=== PATIENT | female | born 1985 | race Caucasian/White ===

== ENCOUNTER 2016-11-09 10:46 | Emergency (ER) | payer MEDICAID ==
[~2016-11-09] VITALS: Wt 59.0 kg
[~2016-11-09 10:46] MED LIST: HYDR-906 PO; IBUP-1542 PO
--- NOTE | 2016-11-09 12:46 | RADRPT ---
PROCEDURE: Left ankle series CLINICAL INDICATION: TRAUMA. Pain TECHNIQUE: 3 views. COMPARISON: None FINDINGS: No fractures are noted. No lesions are visualized. No significant degenerative changes are noted. The ankle mortise is intact. The soft tissues are unremarkable. IMPRESSION: 1. No bony abnormalities are identified. RPTAT: HH .Ki Franco MD, MD Date Time Electronically viewed and signed by .Ki Franco MD, on 11/09/2016 12:46 .G/
--- NOTE | 2016-11-09 12:47 | RADRPT ---
PROCEDURE: Right foot series CLINICAL INDICATION: Trauma and pain. TECHNIQUE: 3 views. COMPARISON: None FINDINGS: No fractures are noted. Joint spaces are well maintained. No erosions are noted. The soft tissues are unremarkable. IMPRESSION: 1. No bony abnormalities are identified. RPTAT: HH .Ki Franco MD, Date Time Electronically viewed and signed by .Ki Franco MD, on 11/09/2016 12:47 .G/
[2016-11-09] MEDS ORDERED: IBUP-1542 PO (12:54)
--- NOTE | 2016-11-09 13:00 | ERD ---
ER Documentation Chief Complaint Date/Time DATE: 11/09/16 TIME: 12:58 Chief Complaint RIGHT FOOT AND ANKLE PAIN FROM NEAR FALL ABOUT 1 WK AGO HPI Start to feel complains of right foot pain after twisting a week ago. The pain is described on the dorsum of the foot. She denies any restricted range of motion or weakness. ROS All systems reviewed and are negative except as per history of present illness. Medications Home Meds Active Scripts Ibuprofen* (Motrin*) 600 Mg Tab, 600 MG PO Q6, #20 TAB Prov:LUIS WISDOM MD 11/09/16 Hydrocodone/Acetaminophen ([place] 5-325 Tablet) 1 Each Tablet, 1 EACH PO QHS for 5 Days, #5 TAB 0 Refills Prov:GILDA SAENZ PA-C 08/24/16 Ibuprofen* (Motrin*) 600 Mg Tab, 600 MG PO Q8 for 10 Days, #30 TAB 0 Refills Prov:GILDA SAENZ PA-C 08/24/16 Ibuprofen* (Motrin*) 600 Mg Tab, 600 MG PO Q6, #30 TAB Prov:TAMMY GAUTAM PA-C 01/15/16 Allergies Allergies: Coded Allergies: Penicillins (Verified Allergy, Unknown, 01/15/16) PMhx/Soc Medical and Surgical Hx: pt denies Medical Hx, pt denies Surgical Hx Hx Alcohol Use: No Hx Substance Use: No Hx Tobacco Use: No Smoking Status: Never smoker Physical Exam Vitals Vital Signs Date Time Temp Pulse Resp B/P Pulse Ox O2 Delivery O2 Flow Rate FiO2 11/09/16 10:50 98.6 55 20 120/58 99 Physical Exam Const: [] Alert, not ill-appearing. Head: Atraumatic Eyes: Normal Conjunctiva ENT: Normal External Ears, Nose and Mouth. Neck: Full range of motion..~ No meningismus. Resp: Clear to auscultation bilaterally Cardio: Regular rate and rhythm, no murmurs Abd: Soft, non tender, non distended. Normal bowel sounds Skin: No petechiae or rashes Back: No midline or flank tenderness Ext: No cyanosis, or edema. Mild tenderness primary doctor second third tarsometatarsal joint and lateral ankle and foot. There is mild swelling. Is no ecchymosis, warmth, erythema, restricted range of motion or weakness. Neur: Awake and alert Psych: Normal Mood and Affect Procedures/MDM X-ray right Foot 3V Interpreted by me: Bones: [No fracture] Joints: [No dislocation] Foreign body: [None]. Impression-normal right foot x-ray X-ray right Ankle 3V Interpreted by me: Bones: [No fracture] Joints: No dislocation. Impression-normal right ankle x-ray Patient presents with signs and symptoms of an acute right foot sprain without evidence of fracture, dislocation, neurologic deficit, bacterial infection. Eliseo bandage and postop shoe was applied. Patient is neurovascular intact after shoe. Patient be discharged home with a prescription of ibuprofen, instructions for ice elevation and instructions to follow-up with primary doctor for further elevation for pain next week. She should return sooner for fevers, redness or new symptoms. Departure Diagnosis: Primary Impression: Sprain of foot, right Encounter type: initial encounter Qualified Code: S93.601A - Sprain of foot , right, initial encounter Condition: Stable Patient Instructions: Sprain Foot [facility] Usted se red hecho un examen mdico de control que le indica que no est en rodrick condicin que requiera tratamiento urgente en el Departamento de Emergencia. Un estudio ms profundo y el tratamiento de garcia condicin pueden esperar sin ningn riesgo hasta que usted sea atendida/o en el consultorio de garcia mdico o rodrick cl arnie. Es responsabilidad suya arreglar rodrick diogenes para el seguimiento del justo. MANEJO DE CONDICIONES NO URGENTES EN EL FUTURO 1) Si usted tiene un mdico de atencin primaria: Usted debera llamar a garcia mdico de atencin primaria antes de venir al departamento de emergencia. Despus de las horas de consultorio, garcia doctor o garcia asociado/a est disponible por telfono. El mdico o enfermero de renny en el servicio telefnico puede asesorarle por caryn medio para atender el problema, o justo contrario se puede programar rodrick diogenes. 2) Si usted no tiene un mdico de atencin primaria: Llame al mdico o clnica de referencia que aparece abajo michelle las horas de consultorio para hacer rodrick diogenes para que le vean. CLINICAS: [facility] [phone] [facility] [phone] [facility] [phone] [place] [phone] [place] [address] [phone] [facility]. [phone] [address] Additional Instructions: X KVNG NORMAL. . Cheque otro vez con garcia doctor primario en el proximo valera or regresa para mas o nueva simptomas. LUIS WISDOM MD Nov 09, 2016 13:00
== END 2016-11-09 15:16 | disposition home or self-care (01) ==
LOC: FTE 10:46
DX: S93.601A Unspecified sprain of right foot, initial encounter (principal); W18.39XA Other fall on same level, initial encounter; Y92.9 Unspecified place or not applicable
CPT/HCPCS: 73610; 73630; Z7502

== ENCOUNTER 2017-09-03 20:32 | Emergency (ER) | payer MEDICAID ==
[~2017-09-03] VITALS: Wt 67.3 kg
[2017-09-03] MEDS ORDERED: KETOROLAC 15 MG INJ IV STA (23:02)
--- NOTE | 2017-09-03 23:02 | ERD ---
ER Documentation Chief Complaint Chief Complaint abdominal pain x 2 weeks HPI This 32-year-old Burundian speaking female presents to ED with 1 week HX of intermitted RUQ ABD pain. left flank pain symptoms worse after eating, denies dysuria, hx of cholecystis or any surgery. LMP 08/16/17 described as normal , last BM was this AM, denies diarrhea, pain is described as "hard" .pt has tried IBU for symptoms relief w/ little relief of symptoms . ROS All systems reviewed and are negative except as per history of present illness. Medications Home Meds Active Scripts Ibuprofen* (Motrin*) 600 Mg Tab, 600 MG PO Q6, #20 TAB Prov:LUIS WISDOM MD 11/09/16 Hydrocodone/Acetaminophen ([place] 5-325 Tablet) 1 Each Tablet, 1 EACH PO QHS for 5 Days, #5 TAB 0 Refills Prov:GILDA SAENZ PA-C 08/24/16 Ibuprofen* (Motrin*) 600 Mg Tab, 600 MG PO Q8 for 10 Days, #30 TAB 0 Refills Prov:GILDA SAENZ PA-C 08/24/16 Ibuprofen* (Motrin*) 600 Mg Tab, 600 MG PO Q6, #30 TAB Prov:TAMMY GAUTAM PA-C 01/15/16 Allergies Allergies: Coded Allergies: Penicillins (Verified Allergy, Unknown, 09/03/17) PMhx/Soc Medical and Surgical Hx: pt denies Medical Hx, pt denies Surgical Hx Hx Alcohol Use: No Hx Substance Use: No Hx Tobacco Use: No Smoking Status: Never smoker Physical Exam Vitals Vital Signs Date Time Temp Pulse Resp B/P Pulse Ox O2 Delivery O2 Flow Rate FiO2 09/03/17 20:36 99.6 87 20 123/73 98 Physical Exam Const: [] Head: Atraumatic Eyes: Normal Conjunctiva ENT: Normal External Ears, Nose and Mouth. Neck: Full range of motion..~ No meningismus. Resp: Clear to auscultation bilaterally Cardio: Regular rate and rhythm, no murmurs Abd: Soft, non tender, non distended. Normal bowel sounds Skin: No petechiae or rashes Back: No midline or flank tenderness Ext: No cyanosis, or edema Neur: Awake and alert Psych: Normal Mood and Affect Result Diagram: 09/03/17 23309/03/17 2330 Results 24 hrs Laboratory Tests Test 09/03/17 23:30 White Blood Count 7.710^3/ul Red Blood Count 4.0810^6/ul Hemoglobin 12.2g/dl Hematocrit 35.9% Mean Corpuscular Volume 88.0fl Mean Corpuscular Hemoglobin 29.9pg Mean Corpuscular Hemoglobin Concent 34.0g/dl Red Cell Distribution Width 12.1% Platelet Count 16911^3/UL Mean Platelet Volume 10.0fl Neutrophils % 60.7% Lymphocytes % 29.1% Monocytes % 8.4% Eosinophils % 1.3% Basophils % 0.1% Nucleated Red Blood Cells % 0.0/100WBC Neutrophils # 4.710^3/ul Lymphocytes # 2.310^3/ul Monocytes # 0.710^3/ul Eosinophils # 0.110^3/ul Basophils # 0.010^3/ul Nucleated Red Blood Cells # 0.010^3/ul Urine Color YELLOW Urine Clarity CLEAR Urine pH 5.0 Urine Specific [place] 1.020 Urine Ketones NEGATIVEmg/dL Urine Nitrite NEGATIVEmg/dL Urine Bilirubin NEGATIVEmg/dL Urine Urobilinogen NEGATIVEmg/dL Urine Leukocyte Esterase NEGATIVELeu/ul Urine Microscopic RBC 5/HPF Urine Microscopic WBC 1/HPF Urine Bacteria FEW/HPF Urine Hemoglobin 1+mg/dL Urine Glucose NEGATIVEmg/dL Urine Total Protein NEGATIVEmg/dl Sodium Level 142mmol/L Potassium Level 4.3mmol/L Chloride Level 107mmol/L Carbon Dioxide Level 26mmol/L Anion Gap 13 Blood Urea Nitrogen 10mg/dl Creatinine 0.73mg/dl Glucose Level 83mg/dl Calcium Level 9.1mg/dl Total Bilirubin 0.1mg/dl Direct Bilirubin 0.00mg/dl Indirect Bilirubin 0.1mg/dl Aspartate Amino Transf (AST/SGOT) 28IU/L Alanine Aminotransferase (ALT/SGPT) 56IU/L Alkaline Phosphatase 119IU/L Total Protein 7.3g/dl Albumin 3.9g/dl Globulin 3.40g/dl Albumin/Globulin Ratio 1.14 Lipase 85U/L Current Medications Medications (Trade) Dose Ordered Sig/Ling Route PRN Reason Start Time Stop Time Status Last Admin Dose Admin Ketorolac Tromethamine (Toradol) 15 mg ONCE STAT IV 09/03/17 23:02 09/03/17 23:04 DC 09/03/17 23:47 Interpretation text CBC shows no evidence of hemorrhage or infection Chemistry shows no evidence of significant electrolyte abnormalities or renal insufficiency Liver function tests shows no evidence of acute biliary or hepatic dysfunction Lipase shows no evidence of acute pancreatitis Procedures/MDM PROCEDURE: CT abdomen and pelvis without intravenous contrast. CLINICAL INDICATION: Pain. TECHNIQUE: CT of the abdomen/pelvis was performed utilizing axial images with reconstructions in sagittal and coronal planes. The administered radiation dose is CTDI 11.6 mGy, DLP 642 mGy-cm. One or more of the following dose reduction techniques were used: automated exposure control, adjustment of the mA and/or kV according to patient size and/or use of iterative reconstruction technique. DICOM images are available. COMPARISON: 08/24/2016 FINDINGS: Visualized Chest: The visualized lung bases are clear. Abdomen: The spleen, pancreas, gallbladder,and adrenal glands are unremarkable. The liver is diffusely decreased in attenuation, compatible with hepatic steatosis. The kidneys are without hydronephrosis. No definite urinary calculi are seen. There is no evidence of bowel obstruction. The appendix is normal. No intra- abdominal free air is seen. There is no evidence of intra-abdominal adenopathy or free fluid. Pelvis: There is no evidence of pelvic adenopathy. The uterus and ovaries are without enlargement. The urinary bladder is unremarkable. There is no pelvic free fluid. Osseous structures: Unremarkable. IMPRESSION: No acute findings. Hepatic steatosis. RPTAT: HIKT .Alex Ojeda MD, MD Date Time Electronically viewed and signed by .Alex Ojeda MD, MD on 09/04/2017 00:26 This 32-year-old female presents to emergency department for abdominal pain 1 week, patient reports intermittent right upper abdominal pain and left flank pain, pain is worse after eating, patient denies any history of dysuria or cholecystitis, she denies any surgeries. Two-room course includes history and physical exam positive findings for right upper quadrant tenderness, epigastric tenderness. Diagnosed with serology and CAT scan of abdomen and pelvis without contrast performed. Diagnostic serologies unremarkable for leukocytosis, hyperglycosemia, hepatitis evidence of alcoholic cirrhosis. Ultrasound as read by radiologist, no acute findings, hepatic stenosis. The spleen pancreas gallbladder and adrenal glands are unremarkable. The liver is diffusely decreased in attenuation, compatible with hepatic stenosis. Patient receives 50 mg of Toradol for pain relief. Plan to discharge patient home with doses of nonalcoholic fatty liver disease. Teaching lifestyle modifications reduce the risk of metabolic syndrome. Weight loss, exercise, follow-up with primary care physician for full evaluation of metabolic syndrome, glucose insufficiency. Patient should be cognizant of Tylenol use not to exceed 2 g in a 24-hour period. Given 7 [place] 5/325 for pain 1 tab p.o. every 8 hours as needed. Patient is stable with no new complaints during ER course, clinically there is no current evidence to suggest meningitis, sepsis, acute abdomen, alcoholic liver disease, cirrhosis, hepatitis A, hepatitis B, hepatitis C, primary biliary cirrhosis, since disease. Acute coronary syndrome or any other emergent condition appearing to require further evaluation or hospitalization. I feel the patient is stable for discharge at this time. I have discussed results, examination findings, the treatment plan with the patient and family present prior to discharge. Indications for emergent reevaluation, side effects of medication were also discussed. All questions were answered. Patient verbalizes understanding and agrees with plan of care. Departure Diagnosis: Primary Impression: Nonalcoholic fatty liver disease Condition: Good Patient Instructions: Non-Alcoholic Fatty Liver Disease (NAFLD) Additional Instructions: Thank you for for coming to the [facility] for your care today. Please ask your nurse or provider if you have questions about your care today and do not leave until all your questions have been answered. Please use any medications given as directed and follow-up with your doctor (or the doctor you were referred to) in the next 2-3 days. If you do not have a primary care doctor you may follow up at the [facility] (listed below). You may also use motrin and tylenol as needed for fever and/or pain unless instructed otherwise by your provider or nurse. Indications for more urgent follow-up have been discussed, but you may return to the Emergency Department at ANY time for any worrisome or worsening symptoms. If you have abdominal pain, please know that no test or exam you received is perfect and you should follow up within 8 hours for continued pain. If you had any imaging studies today, such as an X-Ray or CT Scan, these studies will be reviewed later by a radiologist. You will be called if there are important findings that were not identified today, so make sure the contact information you provided at registration is correct. If you received any narcotic pain control medicine today, such as Vicodin, Morphine or Dilaudid, your coordination and judgment may be affected for a number of hours. Please do not drive or operate heavy machinery, and you may want someone to assist you at home. If you were given a prescription for narcotic medication, be aware that it is very addictive- use sparingly and only if necessary. ANNA MAJOR Sep 03, 2017 23:02
[2017-09-03 23:51] LABS: BASOPHILS % 0.1 % (0.0-2.0); EOSINOPHILS # 0.1 10^3/ul (0.0-0.5); EOSINOPHILS % 1.3 % (0.0-7.0); HEMATOCRIT 35.9 % (37.0-47.0); HEMOGLOBIN 12.2 g/dl (12.0-16.0); LYMPHOCYTES # 2.3 10^3/ul (0.8-2.9); LYMPHOCYTES % 29.1 % (15.0-51.0); MEAN CORPUSCULAR HEMOGLOBIN 29.9 pg (29.0-33.0); MONOCYTE # 0.7 10^3/ul (0.3-0.9); MONOCYTES % 8.4 % (0.0-11.0); NEUTROPHIL # 4.7 10^3/ul (1.6-7.5); NEUTROPHILS % 60.7 % (39.0-77.0); PLATELET COUNT 226 10^3/UL (140-415); RED BLOOD COUNT 4.08 10^6/ul (4.20-5.40); RED CELL DISTRIBUTION WIDTH 12.1 % (11.5-14.5); WHITE BLOOD COUNT 7.7 10^3/ul (4.8-10.8)
[2017-09-04 00:10] LABS: ADD UMIC YES; UR ASCORBIC ACID NEGATIVE (NEGATIVE); UR BACTERIA FEW /HPF (NONE SEEN); UR BILIRUBIN (Dip) NEGATIVE (NEGATIVE); UR BLOOD (Dip) 1+ mg/dL (NEGATIVE); UR CLARITY CLEAR (CLEAR); UR COLOR YELLOW (YELLOW); UR GLUCOSE (Dip) NEGATIVE (NEGATIVE); UR KETONES (Dip) NEGATIVE (NEGATIVE); UR LEUKOCYTE ESTERASE (Dip) NEGATIVE Leu/ul (NEGATIVE); UR NITRITE (Dip) NEGATIVE (NEGATIVE); UR RBC 5 /HPF (0-5); UR TOTAL PROTEIN (Dip) NEGATIVE (NEGATIVE); UR UROBILINOGEN (Dip) NEGATIVE (NEGATIVE)
[2017-09-04 00:18] LABS: ALBUMIN 3.9 g/dl (3.3-4.9); ALBUMIN/GLOBULIN RATIO 1.14; BILIRUBIN,INDIRECT 0.1 mg/dl (0-1.1); BILIRUBIN,TOTAL 0.1 mg/dl (0.2-1.3); CALCIUM 9.1 mg/dl (8.4-10.2); CREATININE 0.73 mg/dl (0.44-1.00); POTASSIUM 4.3 mmol/L (3.5-5.1); TOTAL PROTEIN 7.3 g/dl (6.1-8.1)
--- NOTE | 2017-09-04 00:26 | RADRPT ---
PROCEDURE: CT abdomen and pelvis without intravenous contrast. CLINICAL INDICATION: Pain. TECHNIQUE: CT of the abdomen/pelvis was performed utilizing axial images with reconstructions in s agittal and coronal planes. The administered radiation dose is CTDI 11.6 mGy, DLP 642 mGy-cm. One or more of the following dose reduction techniques were used: automated exposure control, adjustment o f the mA and/or kV according to patient size and/or use of iterative reconstruction technique. DICO M images are available. COMPARISON: 08/24/2016 FINDINGS: Visualized Chest: The visualized lung bases are clear. Abdomen: The spleen, pancreas, gallbladder,and adrenal glands are unremarkable. The liver is diffusely dec reased in attenuation, compatible with hepatic steatosis. The kidneys are without hydronephrosis. No definite urinary calculi are seen. There is no evidence of bowel obstruction. The appendix is normal. No intra-abdominal free air is seen. There is no evidence of intra-abdominal adenopathy or free fluid. Pelvis: There is no evidence of pelvic adenopathy. The uterus and ovaries are without enlargement. The uri nary bladder is unremarkable. There is no pelvic free fluid. Osseous structures: Unremarkable. IMPRESSION: No acute findings. Hepatic steatosis. RPTAT: HIKT .Alex Ojeda MD, MD Date Time Electronically viewed and signed by .Alex Ojeda MD, on 09/04/2017 00:26 .T/
[2017-09-04] MEDS ORDERED: HYDR-906 PO (02:28)
[2017-09-04] MEDS ORDERED: HYDROCODONE/APAP (5/325) TAB PO ONE (02:30)
== END 2017-09-04 02:53 | disposition home or self-care (01) ==
LOC: FTE 20:32
DX: K76.0 Fatty (change of) liver, not elsewhere classified (principal)
CPT/HCPCS: 36415; 74176; 80053; 81001; 83690; 85025; 96374; J1885; Z7502; Z7610